=== PATIENT | female | born 1955 | race Hispanic/Latino ===

== ENCOUNTER → 2019-03-21 | Outpatient (CLI) | payer OTHER ==
[~2019-03-21] MED LIST: LEVO200T10 PO; METF-444 PO
== END | disposition home or self-care (01) ==
LOC: RAH 11:03
PROVIDERS: ATTEND Family Medicine
DX: Z12.31 Encounter for screening mammogram for malignant neoplasm of breast (principal)
CPT/HCPCS: 77067

== ENCOUNTER 2021-09-11 01:57 | Emergency (ER) | payer OTHER ==
[~2021-09-11] VITALS: Ht 162.6 cm; Wt 77.1 kg
[2021-09-11] MEDS ORDERED: KETOROLAC 60 MG VIAL (30MG/ML) IM ONE (02:30)
[2021-09-11] MEDS ORDERED: HYDROCODONE/ACETAMINOPHEN 10/325 MG TAB PO ONE (02:30)
[2021-09-11] MEDS ORDERED: ACET-2079 PO (02:38)
[2021-09-11 03:20] VITALS: BP 147/77
[2021-09-11] MEDS ORDERED: MORPHINE 2 MG SYG IM ONE (03:30)
== END 2021-09-11 03:52 | disposition home or self-care (01) ==
LOC: EDH 01:57
DX: E11.40 Type 2 diabetes mellitus with diabetic neuropathy, unspecified (principal); M79.671 Pain in right foot; M79.672 Pain in left foot; M19.90 Unspecified osteoarthritis, unspecified site; E03.9 Hypothyroidism, unspecified; Z79.84 Long term (current) use of oral hypoglycemic drugs; Z79.899 Other long term (current) drug therapy; Z90.49 Acquired absence of other specified parts of digestive tract; Z98.890 Other specified postprocedural states
CPT/HCPCS: 82948; 96372 ×2; 99284; J1885